=== PATIENT | male | born 1985 | race African-American/Black ===

== ENCOUNTER 2017-08-16 07:18 | Emergency (ER) | payer BC, OTHER ==
[~2017-08-16] VITALS: Ht 188 cm; Wt 90.7 kg
[2017-08-16 07:25] VITALS: BP 140/99
== END 2017-08-16 07:50 | disposition home or self-care (01) ==
LOC: ER 07:18
DX: Z04.6 Encounter for general psychiatric examination, requested by authority (principal); F17.210 Nicotine dependence, cigarettes, uncomplicated; F32.9 Major depressive disorder, single episode, unspecified

== ENCOUNTER 2018-06-06 11:15 | Emergency (ER) | payer OTHER ==
[~2018-06-06] VITALS: Ht 188 cm; Wt 9.1 kg
[2018-06-06] MEDS ORDERED: IBUPROFEN 600600 M1 PO (12:15)
[2018-06-06 16:56] VITALS: BP 125/82
== END 2018-06-06 12:10 | disposition home or self-care (01) ==
LOC: ER 11:15
DX: S93.601A Unspecified sprain of right foot, initial encounter (principal); F17.210 Nicotine dependence, cigarettes, uncomplicated; W22.8XXA Striking against or struck by other objects, initial encounter; Y93.89 Activity, other specified; Y92.89 Other specified places as the place of occurrence of the external cause; Y99.8 Other external cause status

== ENCOUNTER 2019-12-16 17:53 | Inpatient (IN) | payer OTHER ==
[~2019-12-16] VITALS: Ht 188 cm; Wt 99.3 kg
[~2019-12-16 17:53] MED LIST: IBUPROFEN 600600 M1 PO
[2019-12-16 17:55] VITALS: BP 124/81
[2019-12-16 19:05] LABS: HEMATOCRIT 39.6 % (42.0-52.0); HEMOGLOBIN 13.4 gm/dL (14.0-18.0); MCH 31.5 pg (26.0-34.0); MCHC 33.9 g/dL (28.0-37.0); MCV 92.9 fL (80.0-100.0); PLATELET COUNT 257 thou/uL (150-400); RBC 4.26 mil/uL (4.50-6.00); RDW 13.5 % (10.5-14.5); WBC 6.6 thou/uL (4.0-11.0)
[2019-12-16 19:23] LABS: ANION GAP 12 mmol/L (7-16); BUN 20 mg/dL (7-18); CALCIUM 9.2 mg/dL (8.5-10.1); CHLORIDE 103 mmol/L (98-107); CO2 27 mmol/L (21-32); CREATININE 1.2 mg/dL (0.7-1.3); GLUCOSE 92 mg/dL (74-106); POTASSIUM 3.7 mmol/L (3.5-5.1); SODIUM 142 mmol/L (136-145)
[2019-12-16 19:33] LABS: SGOT 31 U/L (15-37); SGPT 41 U/L (30-65); TOTAL BILIRUBIN 0.4 mg/dL (0.2-1.0); TOTAL PROTEIN 7.3 g/dL (6.4-8.2); TROPONIN-I <0.06 ng/mL (<0.06)
[2019-12-16 19:44] LABS: ABSOLUTE NEUTROPHILS 4.4 thou/uL (1.4-8.2)
[2019-12-16 20:14] LABS: PROTIME 9.9 Seconds (9.3-11.4)
--- NOTE | 2019-12-16 23:03 | EKG ---
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
[2019-12-17 00:08] VITALS: BP 129/90
[2019-12-17 00:27] VITALS: BP 129/90
--- NOTE | 2019-12-17 02:26 | NUR ---
Pt admitted from ED AT 0045 with GIB. A/OX4, VSS. Denies pain, N/V on assessment reports it's all resolved at this time. Pt's up ad rio,fall education reinforced and pt agrees to call for help as needed. Skin intact,SCDs applied. IVF infusing via LAC w/o problems. NSR on telemetry. Pt is NPO at this time for possible EGD;c/o pain on chest when swallowing. Resting quietly at this time,will continue to monitor pt.
[2019-12-17 04:06] VITALS: BP 122/86
[2019-12-17 05:34] LABS: HEMATOCRIT 36.2 % (42.0-52.0); HEMOGLOBIN 12.2 gm/dL (14.0-18.0); MCH 31.7 pg (26.0-34.0); MCHC 33.6 g/dL (28.0-37.0); MCV 94.5 fL (80.0-100.0); RBC 3.84 mil/uL (4.50-6.00); RDW 13.4 % (10.5-14.5); WBC 5.4 thou/uL (4.0-11.0)
[2019-12-17 17:09] LABS: HEMATOCRIT 35.3 % (42.0-52.0); HEMOGLOBIN 11.9 gm/dL (14.0-18.0)
--- NOTE | 2019-12-17 18:36 | NUR ---
Assumed care of pt. at 0700. Pt. was calm and cooperative. Pt. was seen by GI Dr. hWitaker. EGD is scheduled for tomorrow morning. Pt. is to be NPO after midnight.
[2019-12-17 20:29] VITALS: BP 116/86
--- NOTE | 2019-12-18 04:15 | NUR ---
PATIENT ALERT AND ORIENTED X4. UP ADLIB IN ROOM. NPO AT 2359 ON 12/17/19 FOR EGD THIS AM. PATIENT PLEASANT AND COOPERATIVE. DENIES PAIN. IVF INFUSING W/O COMPLICATION. WILL MONITOR.
[2019-12-18 05:42] LABS: HEMATOCRIT 34.5 % (42.0-52.0); HEMOGLOBIN 11.7 gm/dL (14.0-18.0); MCH 31.6 pg (26.0-34.0); PLATELET COUNT 221 thou/uL (150-400); RBC 3.71 mil/uL (4.50-6.00); RDW 13.3 % (10.5-14.5); WBC 4.1 thou/uL (4.0-11.0)
[2019-12-18 05:48] VITALS: BP 127/93
[2019-12-18 05:58] LABS: ALBUMIN 3.4 g/dL (3.4-5.0); CALCIUM 8.8 mg/dL (8.5-10.1); CREATININE 1.1 mg/dL (0.7-1.3); PHOSPHORUS 3.9 mg/dL (2.5-4.9); POTASSIUM 3.8 mmol/L (3.5-5.1); TOTAL BILIRUBIN 0.5 mg/dL (0.2-1.0); TOTAL PROTEIN 6.3 g/dL (6.4-8.2)
[2019-12-18 07:25] VITALS: BP 132/81
[2019-12-18] MEDS ORDERED: OMEPRAZOLE 20 M20 M1 PO (09:20)
[2019-12-18 09:50] LABS: ABSOLUTE NEUTROPHILS 1.6 thou/uL (1.4-8.2); PLATELET ESTIMATE NORMAL
[2019-12-18 09:52] VITALS: BP 130/92
[2019-12-18 10:48] VITALS: BP 130/92
[2019-12-18 11:15] VITALS: BP 124/94
--- NOTE | 2019-12-18 11:26 | NUR ---
ASSUMED PT CARE THIS AM. PT VITAL SIGNS STABLE, A&OX4. PT COMPLAINED OF NO PAIN. EGD COMPLETED THIS AM, PT DISCHARGED TO HOME. ON TELE, PT NSR. PT WAS NPO THIS AM, IV FLUIDS RUNNING. PT AMBULATORY TO BATHROOM. PT DISCHARGED AT 1115.
--- NOTE | 2019-12-20 17:06 | PATH ---
[facility] [address] [place] [address] PATHOLOGY RPT PROCEDURE Name: GABO HUGO Room #: 449-I DIS IN M.R.#: [id number] Admission: 12/16/19 Date of : 87 Discharge: 12/18/19 Report #: [id number] Path Case #: [id number] [facility] Accession Number: [id number] . 01 Material submitted: . esophagus - BIOPSY OF ESOPHAGUS R/O EOE . 01 Clinician provided ICD-10: D62 K92.1 . 01 Clinical history: . ACUTE GI BLEED, HEMATEMESIS, MELANA . 02 Diagnosis: Squamous mucosa, esophagus, rule out eosinophilic esophagitis, endoscopic biopsy: - Mild esophagitis showing changes compatible with reflux esophagitis. - Negative for increase in intraepithelial eosinophils. - Negative for intestinal metaplasia or dysplasia. (IUV:pit 12/20/2019) QTP 12/20/2019 1221 Local . 02 Electronically signed: . Casi Cook MD, Pathologist NPI- [id number] . 01 Gross description: . The specimen is received in formalin, labeled "Gabo Hugo", "biopsy of esophagus rule out eosinophilic esophagitis". Received are multiple segments of pale white-camacho soft tissue, ranging in size from 0.1 cm to 0.3 cm. The specimen is entirely submitted in cassette A1.([facility]; 12/19/2019) MOY/KERRY 12/19/2019 1117 Local . 02 Pathologist provided ICD-10: K20.90 . 02 CPT . 195146 Specimen Comment: A courtesy copy of this report has been sent to [phone], [phone] Specimen Comment: [id number] Specimen Comment: Report sent to / DR ESTRADA Performed at: [address] [id number] MD Jayant Walters MD Phone: [phone] [facility] [address] [place] [address] PATHOLOGY RPT PROCEDURE Name: GABO HUGO Room #: 449-I [facility] IN M.R.#: [id number] Admission: 12/16/19 Date of : 87 Discharge: 12/18/19 Report #: [id number] Path Case #: [id number] Performed at: 02 [facility] [address] [employer], [place] [id number] MD Casi Cook MD Phone: [phone]
== END 2019-12-18 11:35 | disposition home or self-care (01) | DRG 368 ==
LOC: ER 17:53 → 4W 20:10 → EROBS 20:10 → 4W 12-17 00:27
PROVIDERS: Emergency Medicine; Nurse Practitioner Family; ADMIT Internal Medicine; ATTEND Internal Medicine
PROC: 0DB38ZX Excision of Lower Esophagus, Via Natural or Artificial Opening Endoscopic, Diagnostic (ICD-10-PCS; principal; 2019-12-18)
PROC: 0D738ZZ Dilation of Lower Esophagus, Via Natural or Artificial Opening Endoscopic (ICD-10-PCS; principal; 2019-12-18)
DX: K20.91 Esophagitis, unspecified with bleeding (principal); K29.71 Gastritis, unspecified, with bleeding; D62 Acute posthemorrhagic anemia; K92.0 Hematemesis; F17.210 Nicotine dependence, cigarettes, uncomplicated; Z20.828 Contact with and (suspected) exposure to other viral communicable diseases; R13.10 Dysphagia, unspecified; K22.2 Esophageal obstruction; K44.9 Diaphragmatic hernia without obstruction or gangrene; F10.10 Alcohol abuse, uncomplicated; Z79.899 Other long term (current) drug therapy
CPT/HCPCS: 10045; 62110; 62900; 70005

== ENCOUNTER 2020-10-14 07:35 | Emergency (ER) | payer OTHER ==
[~2020-10-14] VITALS: Ht 188 cm; Wt 96.6 kg
[~2020-10-14 07:35] MED LIST changes: +OMEPRAZOLE 20 M20 M1 PO
[2020-10-14] MEDS ORDERED: ZANTAC-360 (FAM10 MG PO (07:41)
[2020-10-14 08:43] LABS: ABSOLUTE NEUTROPHILS 3.5 thou/uL (1.4-8.2); EOSINOPHILS 0.2 % (0.0-3.0); PLATELET COUNT 214 thou/uL (150-400)
[2020-10-14 08:46] LABS: BASOPHILS 0.8 % (0.0-2.0); HEMOGLOBIN 14.6 gm/dL (14.0-18.0); LYMPHOCYTES 14.1 % (24.0-44.0); MCH 30.6 pg (26.0-34.0); MCHC 33.3 g/dL (28.0-37.0); MONOCYTES 17.5 % (1.0-8.0); POLYS 67.4 % (36.0-66.0); RBC 4.78 mil/uL (4.50-6.00); RDW 13.5 % (10.5-14.5); WBC 5.2 thou/uL (4.0-11.0)
[2020-10-14 09:03] LABS: CALCIUM 8.7 mg/dL (8.5-10.1); CREATININE 1.2 mg/dL (0.7-1.3); POTASSIUM 3.6 mmol/L (3.5-5.1)
[2020-10-14] MEDS ORDERED: MECLIZINE HCL25 M1 PO (09:55)
[2020-10-14 10:04] VITALS: BP 120/79
--- NOTE | 2020-10-14 15:15 | EKG ---
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1985 Requested By: Connor Santos Order Number: [id number] MD: Steve Fuentes Measurements Intervals [place] Rate: 102 P: 40 MT: 141 QRS: -8 QRSD: 83 T: 7 QT: 329 QTc: 429 Interpretive Statements Sinus tachycardia Probable left atrial enlargement Borderline low voltage, extremity leads ST elev, probable normal early repol pattern Compared to ECG 12/16/2019 18:44:54 Sinus rhythm no longer present ST (T wave) deviation still present Electronically Signed On 10-14-2020 15:14:51 CDT by Steve Fuentes [email or web address] <ELECTRONICALLY SIGNED> By: Steve Fuentes MD, [facility] 10/14/20 1514 0 0 Steve Fuentes MD, [facility] /EPI
== END 2020-10-14 10:05 | disposition home or self-care (01) ==
LOC: ER 07:35
PROVIDERS: Emergency Medicine
DX: U07.1 COVID-19 (principal); R42 Dizziness and giddiness; F17.210 Nicotine dependence, cigarettes, uncomplicated; Z79.899 Other long term (current) drug therapy

== ENCOUNTER 2020-10-20 23:25 | Emergency (ER) | payer OTHER ==
[~2020-10-20] VITALS: Ht 188 cm; Wt 94.3 kg
[~2020-10-20 23:25] MED LIST changes: +MECLIZINE HCL25 M1 PO; +ZANTAC-360 (FAM10 MG PO
[2020-10-21 01:14] VITALS: BP 115/72
[2020-10-22] MEDS ORDERED: MELATONIN10 M3 PO (21:16)
== END 2020-10-21 01:14 | disposition home or self-care (01) ==
LOC: ER 23:25
DX: U07.1 COVID-19 (principal); J12.82 Pneumonia due to coronavirus disease 2019

== ENCOUNTER 2020-10-22 04:45 | Inpatient (IN) | payer OTHER ==
[~2020-10-22] VITALS: Ht 188 cm; Wt 96.2 kg
[2020-10-22] VITALS (7 sets, daily range): BP systolic 97–121; BP diastolic 49–87
[2020-10-22 05:59] LABS: ABSOLUTE NEUTROPHILS 3.9 thou/uL (1.4-8.2); BASOPHILS 0.3 % (0.0-2.0); HEMATOCRIT 41.7 % (42.0-52.0); HEMOGLOBIN 14.3 gm/dL (14.0-18.0); MCH 30.9 pg (26.0-34.0); MCHC 34.4 g/dL (28.0-37.0); MCV 89.9 fL (80.0-100.0); MONOCYTES 6.3 % (1.0-8.0); PLATELET COUNT 238 thou/uL (150-400); POLYS 84.4 % (36.0-66.0); RBC 4.64 mil/uL (4.50-6.00); RDW 13.2 % (10.5-14.5); WBC 4.6 thou/uL (4.0-11.0)
[2020-10-22 06:05] LABS: CALCIUM 8.4 mg/dL (8.5-10.1); CREATININE 1.2 mg/dL (0.7-1.3); POTASSIUM 3.5 mmol/L (3.5-5.1)
[2020-10-22 09:02] LABS: ALBUMIN 3.2 g/dL (3.4-5.0); DIRECT BILIRUBIN 0.6 mg/dL (<0.1-0.2); TOTAL PROTEIN 7.2 g/dL (6.4-8.2)
[2020-10-22 10:33] LABS: FOLIC ACID 17.2 ng/mL (8.6-58.9)
--- NOTE | 2020-10-22 14:23 | NUR ---
INITIAL ASSESSMENT: MARIAH reviewed chart and spoke with nursing and attending physician. Pt was admitted from home due to COVID pneumonia. Pt had first positive COVID test on 10/14/2020. Pt has not received a COVID vaccination. Pt has been febrile and is on 4L of O2. Pt is on IV abx and IV steroids. Pulm and ID consulted. Pt has been started on COVID meds. MARIAH spoke wiht pt via phone. Introduced role of SW. Pt is alert/orientated x 4. Pt reports he lives at home with family. Prior to admission, pt was independent with ADLs. No use of DME. No hx of HH or post-acute placement. Pt does not currently have a PCP. Pt states that he was supposed to start school today and requests documentation to provide to school to verify that he is currently hospitalized. MARIAH wrote letter and faxed to the nurses station to provide to pt. Plan is for pt to discharge home when medically stable. MARIAH is following to assist as needed with discharge planning.
--- NOTE | 2020-10-22 17:11 | NUR ---
PT ADMITTTED FROM ER ABOUT 0800AM COVID PNEUMONIA, PT IS O2 2L/MIN/NC, PT'S O2SAT STAYS AT 92-95%, PT HAS ID DR AND PULMONARY DR CONSULTS, PT HAS STARTED IV ABX AND TREAT COVID MEDICATIONS, PT'S VS ARE STABLE, PT 'S SOB AND FEVER HAVE IMPROVED.
[2020-10-22] MEDS ORDERED: MELATONIN10 M3 PO (21:16)
--- NOTE | 2020-10-22 23:22 | NUR ---
PT'S MOTHER (JAGDISH HANEY) CALLED UNIT FOR UPDATE ON HER SON. SHE ATTEMPTED TO CALL HIS CELL PHONE, BUT STATED HE DID NOT ANSWER HE WAS LIKELY SLEEPING. SHE WAS PROVIDED UPDATE ON POC.
[2020-10-23 03:42] VITALS: BP 97/70
--- NOTE | 2020-10-23 04:38 | NUR ---
PT HAS NOT BEEN FEELING WELL OVERALL THIS SHIFT. TYLENOL GIVEN AT BEGINNING OF SHIFT FOR HEADACHE AND FEVER, BOTH OF WHICH RESOLVED. PT WAS GIVEN MELATONIN TO HELP WITH SLEEP. HE HAS BEEN SLEEPING OFF AND ON DURING THE NIGHT. PT AWAKENED THIS MORNING WITH BODY SWEATS AND NAUSEA. ZOFRAN GIVEN. BED LINENS CHANGED. PT WAS SHIVERING BUT AFEBRILE. NON-PRODUCTIVE, CONGESTED COUGH NOTED. SPO2 STABLE ON 2L NC. VSS. WILL CONTINUE TO MONITOR CLOSELY.
--- NOTE | 2020-10-23 04:42 | NUR ---
AROUND MIDNIGHT, PT'S SISTER CALLED RN FOR UPDATE ON HER BROTHER. NO INFORMATION WAS GIVEN TO HER, SHE IS NOT ON AUTHORIZED CONTACT LIST. PT WAS INFORMED HIS SISTER CALLED.
[2020-10-23 05:19] LABS: ABSOLUTE NEUTROPHILS 3.7 thou/uL (1.4-8.2); BASOPHILS 0.3 % (0.0-2.0); HEMATOCRIT 44.1 % (42.0-52.0); HEMOGLOBIN 14.9 gm/dL (14.0-18.0); LYMPHOCYTES 8.6 % (24.0-44.0); MCH 30.4 pg (26.0-34.0); MCHC 33.7 g/dL (28.0-37.0); MONOCYTES 8.5 % (1.0-8.0); PLATELET COUNT 284 thou/uL (150-400); POLYS 82.6 % (36.0-66.0); RDW 13.4 % (10.5-14.5); WBC 4.5 thou/uL (4.0-11.0)
[2020-10-23 05:41] LABS: ALBUMIN 2.8 g/dL (3.4-5.0); CALCIUM 8.2 mg/dL (8.5-10.1); CREATININE 1.2 mg/dL (0.7-1.3); MAGNESIUM 2.6 mg/dL (1.8-2.4); POTASSIUM 4.2 mmol/L (3.5-5.1); PROTIME 10.9 Seconds (10.5-12.1); TOTAL BILIRUBIN 0.9 mg/dL (0.2-1.0); TOTAL PROTEIN 6.9 g/dL (6.4-8.2)
[2020-10-23 05:46] LABS: D-DIMER 0.39 ug/mLFEU (0.19-0.50)
[2020-10-23 08:22] VITALS: BP 117/83
--- NOTE | 2020-10-23 14:52 | NUR ---
SW reviewed chart and spoke with nursing and attending physician. Pt remains in Enhanced Isolation due to COVID. Pt is afebrile and on 2L of O2. Pt is on IV abx, IV steroids and COVID meds. Plan is for pt to discharge home when medically stable. MARIAH is following to assist as needed with discharge planning.
[2020-10-23 16:43] VITALS: BP 108/74
[2020-10-23 19:14] VITALS: BP 117/80
--- NOTE | 2020-10-23 21:28 | NUR ---
PT RESTING IN BED WATCHING TV IN THE DARK. O2 PER NC. IVF INTACT. PT PROVIDED SNACK. LUNGS DIMINISHED. PT CALLS FOR ASSISTANCE.
[2020-10-24 03:32] VITALS: BP 4114/75
[2020-10-24 05:43] LABS: ALBUMIN 2.6 g/dL (3.4-5.0); CALCIUM 7.9 mg/dL (8.5-10.1); CREATININE 1.1 mg/dL (0.7-1.3); DIRECT BILIRUBIN 0.3 mg/dL (<0.1-0.2); PHOSPHORUS 3.4 mg/dL (2.5-4.9); POTASSIUM 3.8 mmol/L (3.5-5.1); TOTAL BILIRUBIN 0.6 mg/dL (0.2-1.0); TOTAL PROTEIN 6.3 g/dL (6.4-8.2)
[2020-10-24 07:45] VITALS: BP 109/76
[2020-10-24 10:08] LABS: HIV ANTIBODY Non Reactive (Non Reactive)
[2020-10-24 11:18] VITALS: BP 116/75
--- NOTE | 2020-10-24 13:02 | NUR ---
MARIAH reviewed chart and spoke with nursing and attending physician. Pt remains in Enhanced Isolation due to COVID. Pt is afebrile and on 3L of O2. Pt is on IV abx, IV steroids and COVID meds. MARIAH spoke with pt via phone to discuss discharge plan. Pt states his O2 was increased to 4L. SW explained possible need for home O2. Pt verbalized understanding. MARIAH confirmed pt's home address and phone number. Options provided for [employer] companies. No preference voiced. Pt will need a rest/exercise oximetry prior to discharge to determine home O2 needs. MARIAH faxed home O2 referral to [facility] and notified [facility] liaison of new referral. [facility] to deliver portable O2 tank to the nurses station to have for pt at time of discharge if needed. MARIAH is following to assist as needed with discharge planning.
[2020-10-24 15:30] VITALS: BP 122/92
--- NOTE | 2020-10-24 18:20 | NUR ---
PT RESTING IN BED WITH INCREASED USE OF OXYGEN COMPARED TO PRIOR DAYS. NOW ON 4L VIA NC. PT REFUSING TO MOVE FROM BED TO CHAIR. WILL NOT ATTEMPT TO PRONE. PT HAS BEEN ON CELL PHONE MAJORITY OF DAY WITH MULTIPLE INSTANCES OF SHOUTING AND YELLING DURING PHONE CALL. PT STATES HE IS READY TO GO HOME AND DOES NOT WANT TO BE IN THE HOSPITAL ANY LONGER. THIS RN ATTEMPTED TO PROVIDE THERAPEUTIC COMMUNICATION, BUT PT WAS NOT WILLING TO DISCUSS WHAT WAS UPSETTING HIM DURING PHONE CALL. PT HAS REFUSED LUNCH AND DINNER.
[2020-10-24 20:45] VITALS: BP 112/76
[2020-10-25 05:20] VITALS: BP 110/61
[2020-10-25 05:44] LABS: ALBUMIN 2.6 g/dL (3.4-5.0); CALCIUM 7.9 mg/dL (8.5-10.1); CREATININE 1.1 mg/dL (0.7-1.3); DIRECT BILIRUBIN 0.2 mg/dL (<0.1-0.2); POTASSIUM 3.8 mmol/L (3.5-5.1); TOTAL BILIRUBIN 0.5 mg/dL (0.2-1.0); TOTAL PROTEIN 6.2 g/dL (6.4-8.2)
[2020-10-25 07:43] VITALS: BP 115/74
[2020-10-25 11:27] VITALS: BP 124/89
[2020-10-25 14:21] VITALS: BP 124/89
--- NOTE | 2020-10-25 14:22 | NUR ---
MARIAH reviewed chart and spoke with nursing and attending physician. Pt remains in Enhanced Isolation. Pt is febrile and on 2L of O2. Pt is on IV abx and IV steroids. Remdesivir course to be completed tomorrow. Rest/exercise oximetry ordered. Pt's O2 sat dropped to 78% on room air. MARIAH spoke with pt via phone to discuss discharge plan. Possible weekend discharge. Pt states he wants to go home. SW explained need for repeat rest/exercise oximetry to determine his home O2 needs. Pt verbalized understanding. MARIAH explained process for setting up home O2. MARIAH updated [facility] liaison, Portable O2 tank delivered to the hospital today for pt if needed when discharged. Will need rest/exercise oximetry results and script for O2 faxed to [facility] when available. Contact info for [facility] placed in pt's discharge summary. Pt will have transportation home when discharged. MARIAH is following to assist as needed with discharge planning. ARIES--
[2020-10-25 15:32] VITALS: BP 138/91
--- NOTE | 2020-10-25 19:16 | NUR ---
ASSUMED PATIENT CARE AT 0700. A/O X4. DEPRESSED. ON 5L/NC. SLOWLY TOWARDS POC GOALS.
[2020-10-25 20:06] VITALS: BP 121/89
--- NOTE | 2020-10-26 02:24 | NUR ---
resting quietly tonight. he maintains a good appetite with snacks eaten at bedtime. he continues on iv fluids and oxygen. no concerns voiced.
[2020-10-26 03:29] LABS: ALBUMIN 2.4 g/dL (3.4-5.0); CALCIUM 7.8 mg/dL (8.5-10.1); DIRECT BILIRUBIN 0.2 mg/dL (<0.1-0.2); PHOSPHORUS 3.7 mg/dL (2.5-4.9); POTASSIUM 3.8 mmol/L (3.5-5.1); TOTAL BILIRUBIN 0.5 mg/dL (0.2-1.0)
[2020-10-26 05:08] VITALS: BP 133/97
[2020-10-26 07:05] LABS: T-SPOT.TB Negative
[2020-10-26 07:54] VITALS: BP 129/92
[2020-10-26 11:30] VITALS: BP 124/83
[2020-10-26 15:36] VITALS: BP 127/92
--- NOTE | 2020-10-26 17:40 | NUR ---
ASSUMED PATIENT CARTE AT 0700. A/O X4. ON 5L/NC. VSS. SLOWLY TOWARDS POC GOALS.
[2020-10-26 19:10] VITALS: BP 123/83
--- NOTE | 2020-10-26 22:14 | NUR ---
PT RESTING IN BED IN THE DARK LOOKING AT PHONE. FLAT AFFECT, POOR EYE CONTACT. O2 PER NC, LUNGS DIMINISHED. IVF INTACT. PT DECLINED HS SNACK. PT ASKED FOR PRN FOR SLEEP AND PROVIDED. INDEP STEADY GAIT. CALLS FOR ASSISTANCE.
[2020-10-27 04:14] LABS: DIRECT BILIRUBIN 0.1 mg/dL (<0.1-0.2); PHOSPHORUS 3.3 mg/dL (2.6-4.7)
[2020-10-27 04:25] LABS: ABSOLUTE NEUTROPHILS 5.6 thou/uL (1.4-8.2); ALBUMIN 2.5 g/dL (3.4-5.0); BASOPHILS 0.3 % (0.0-2.0); CALCIUM 8.1 mg/dL (8.5-10.1); CREATININE 0.9 mg/dL (0.7-1.3); EOSINOPHILS 0.1 % (0.0-3.0); HEMOGLOBIN 14.5 gm/dL (14.0-18.0); LYMPHOCYTES 7.6 % (24.0-44.0); MCH 31.1 pg (26.0-34.0); MCHC 34.6 g/dL (28.0-37.0); MCV 89.7 fL (80.0-100.0); MONOCYTES 5.9 % (1.0-8.0); PLATELET COUNT 387 thou/uL (150-400); POLYS 86.1 % (36.0-66.0); POTASSIUM 3.9 mmol/L (3.5-5.1); RBC 4.68 mil/uL (4.50-6.00); RDW 13.3 % (10.5-14.5); TOTAL BILIRUBIN 0.4 mg/dL (0.2-1.0); TOTAL PROTEIN 6.1 g/dL (6.4-8.2); WBC 6.5 thou/uL (4.0-11.0)
[2020-10-27 04:56] LABS: D-DIMER 0.45 ug/mLFEU (0.19-0.50)
[2020-10-27 05:00] VITALS: BP 138/97
[2020-10-27 07:48] VITALS: BP 123/91
[2020-10-27 11:38] VITALS: BP 126/94
[2020-10-27 15:40] VITALS: BP 116/81
[2020-10-27 18:52] VITALS: BP 122/86; BP 122/866
--- NOTE | 2020-10-27 19:24 | NUR ---
PT RESTING IN BED. O2 PER NC. IVF INTACT. PT HAS FLAT AFFECT, GOOD EYE CONTACT, TALKING WITH NURSE ABOUT NEW MEDICATION FOR ANXIETY AND O2 EXTENSION TUBING. PT STATED HE HAS NOT HAD A BM IN AWHILE, BUT WILL TRY NOT THAT HE CAN SIT IN BATHROOM. PT CONTINUES TO WATCH TV IN THE DARK.
--- NOTE | 2020-10-28 02:47 | NUR ---
PT HAD HS PRN ATIVAN. PT HUNG HIS URINAL ON HIS IV TUBING VERSUS THE TRASH CAN. PT WAS COMPLETELY COILED IN IV TUBING. PT LATER IN SHIFT ROLLED OVER AND PULLED OUT IV. PT GROGGY AND SLEEPING, ABLE TO VERBALLY ANSWER QUESTIONS. WILL RESTART IV IN AM PER PT REQUEST.
[2020-10-28 05:00] VITALS: BP 115/73
[2020-10-28 08:06] VITALS: BP 123/90
[2020-10-28 11:15] LABS: CALCIUM 8.8 mg/dL (8.5-10.1); DIRECT BILIRUBIN 0.1 mg/dL (<0.1-0.2); PHOSPHORUS 3.8 mg/dL (2.5-4.9); POTASSIUM 3.5 mmol/L (3.5-5.1); TOTAL BILIRUBIN 0.5 mg/dL (0.2-1.0); TOTAL PROTEIN 6.8 g/dL (6.4-8.2)
[2020-10-28 11:47] VITALS: BP 118/84
[2020-10-28] MEDS ORDERED: ZINC SULFATE50 MG PO (11:48)
[2020-10-28] MEDS ORDERED: VITAMINC500 PO (11:48)
[2020-10-28] MEDS ORDERED: PREDNISONE 10 M10 M1 PO (11:48)
[2020-10-28] MEDS ORDERED: VENTOLIN HFA INH8 GM INH (11:48)
[2020-10-28] MEDS ORDERED: TYLENOL325 MG PO (11:48)
[2020-10-28] MEDS ORDERED: VITAMIN D325 MC2 PO (11:48)
[2020-10-28] MEDS ORDERED: OXYGEN MISCELL (11:50)
[2020-10-28 13:01] VITALS: BP 124/89
--- NOTE | 2020-10-28 13:40 | NUR ---
DISCHARGE INFORMATION PROVIDED TO PT. PT VERBALIZED UNDERSTANDING OF INSTRUCTIONS WELL CALLING [facility] FOR DELIVERY OF CONCENTRATOR. HOME ISOLATION PRECAUTIONS DISCUSSED, HANDOUTS FROM [facility] PROVIDED.
[2020-10-28 14:26] VITALS: BP 124/89
--- NOTE | 2020-10-29 16:37 | NUR ---
MARIAH received call from [facility] liaison requesting script for home O2. Pt was discharged home yesterday, 10/28/2020. MARIAH faxed rest/exercise oximetry and script to [facility]. Received confirmation. No additional discharge needs. Case closed.
== END 2020-10-28 14:13 | disposition home or self-care (01) | DRG 871 ==
LOC: ER 04:45 → 3W 06:46 → EROBS 06:46 → 3W 07:39
PROVIDERS: Nurse Practitioner; Specialist; Student in an Organized Health Care Education/Training Program; ADMIT Hospitalist; ATTEND Hospitalist
PROC: XW033E5 Introduction of Remdesivir Anti-infective into Peripheral Vein, Percutaneous Approach, New Technology Group 5 (ICD-10-PCS; 2020-10-22)
PROC: 5A0935A Assistance with Respiratory Ventilation, Less than 24 Consecutive Hours, High Flow/Velocity Cannula (ICD-10-PCS; principal; 2020-10-26)
DX: A41.9 Sepsis, unspecified organism (principal); U07.1 COVID-19; J96.01 Acute respiratory failure with hypoxia; J12.82 Pneumonia due to coronavirus disease 2019; J96.02 Acute respiratory failure with hypercapnia; K21.9 Gastro-esophageal reflux disease without esophagitis; F17.210 Nicotine dependence, cigarettes, uncomplicated; Z79.899 Other long term (current) drug therapy
CPT/HCPCS: 10879